=== PATIENT | female | born 1970 | race Caucasian/White ===

== ENCOUNTER 2021-05-10 06:25 | Day surgery (SDC) | payer BC, OTHER ==
[~2021-05-10] VITALS: Ht 160 cm; Wt 91.0 kg
[~2021-05-10 06:25] MED LIST: ESTRING1 EACH VAGINAL; MULTI VITAMIN1 EACH PO
--- NOTE | 2021-05-10 08:12 | NUR ---
05/10/21 0812 Angie Gipson [id number]-PATIENT ARRIVED TO PACU ON 2L NC RR EVEN LAYING LEFT LATERAL. PATIENT VERY DROWSY DENIES PAIN OR NAUSEA. ENCOURAGED TO PASS GAS. PATIENT FALLS BACK ASLEEP.
--- NOTE | 2021-05-10 09:20 | OR ---
[facility] [address], [place] [address] Signed DATE OF OPERATION: 05/10/2021 SURGEON: Hyun Calles MD PREOPERATIVE DIAGNOSIS: Screening. POSTOPERATIVE DIAGNOSES: 1. Minimal to moderate sigmoid diverticulosis. 2. Long redundant moderately angulated left colon. PROCEDURE: Colonoscopy without biopsy. ESTIMATED BLOOD LOSS: None. INDICATIONS: Sean is a 50-year-old female, asked to see me for her initial screening colonoscopy. She has no lower GI complaints. There is no family history of colon cancer or polyps. In the office, I gave her a pamphlet on colonoscopy. She understands the nature of the test. There is risk including, but not limited to gas bloating, crampy abdominal pain, bleeding, perforation requiring surgery, and missed diagnosis. She also understands the need for IV conscious sedation. She expressed understanding and wishes to proceed. PROCEDURE NOTE: Sean was taken into our endoscopy suite and placed in the left lateral decubitus position. She was given a total of 7 mg of Versed and 150 mcg of fentanyl to cover the case. A digital rectal exam was performed and this was unremarkable. The adult colonoscope was introduced and advanced under direct visualization of the camera. We found that she has at least a couple of areas of angulation in the sigmoid colon. In that regard, she took extra sedation, abdominal compression in order to advance the scope. Her splenic and hepatic flexures took just a little bit to get around as well. Overall, she seemed to be well sedated, but if she has recall of the procedure, she might consider monitored anesthesia care with propofol in the future. Eventually, we made it down to the right cecum. Her prep was quite excellent. We could easily see the appendiceal orifice and the ileocecal valve. The scope was slowly withdrawn. She has no polyps in the colon. She does have diverticula in the sigmoid colon. They were minimal to moderate in size and minimal to moderate in number. The rectum was unremarkable. Upon retroflexion of scope, she has a tiny internal anal skin tag. After Electronically Signed By: HYUN CALLES MD 05/10/21 0920 PATIENT NAME: SEAN GALAN OPERATIVE REPORT DATE OF : 68 REPORT #: [id number] PHYSICIAN: HYUN CALLES MD PCP: CHEYENNE CHRISTOPHER MD REPORT IS CONFIDENTIAL AND NOT TO BE RELEASED WITHOUT AUTHORIZATION [facility] [address] [place] [id number] Signed this, the gas was suctioned out and colonoscope removed. Sean tolerated the procedure quite well. RECOMMENDATIONS: Sean can return in 10 years for a repeat colonoscopy. If she has recall of the procedure, she might consider monitored anesthesia care with propofol in the future as described above. MD MARLON Griffin/JACKL /[id number] cc: MD Cheyenne Griffin MD Copies: HYUN CALLES MD, JONATHAN MD ~ Electronically Signed By: HYUN CALLES MD 05/10/21 0920 PATIENT NAME: SEAN GALAN OPERATIVE REPORT DATE OF : 68 REPORT #: [id number] PHYSICIAN: HYUN CALLES MD PCP: CHEYENNE CHRSITOPHER MD REPORT IS CONFIDENTIAL AND NOT TO BE RELEASED WITHOUT AUTHORIZATION
== END 2021-05-10 08:50 | disposition home or self-care (01) ==
LOC: OPS 06:25 → DS 06:25 → OPS 06:30 → DS 06:45 → OPS 08:50
PROVIDERS: ATTEND Colon & Rectal Surgery
PROC: 0DJD8ZZ Inspection of Lower Intestinal Tract, Via Natural or Artificial Opening Endoscopic (ICD-10-PCS; principal; 2021-05-10 06:30)
DX: Z12.11 Encounter for screening for malignant neoplasm of colon (principal); K57.30 Diverticulosis of large intestine without perforation or abscess without bleeding; Q43.8 Other specified congenital malformations of intestine; G47.33 Obstructive sleep apnea (adult) (pediatric); E66.9 Obesity, unspecified; Z68.35 Body mass index [BMI] 35.0-35.9, adult; Z90.11 Acquired absence of right breast and nipple; Z87.891 Personal history of nicotine dependence
CPT/HCPCS: 99153; G0500; J2250; J3010; J7121

== ENCOUNTER 2023-07-20 12:38 | Emergency (ER) | payer OTHER, BC ==
[~2023-07-20] VITALS: Ht 157.5 cm; Wt 96.2 kg
[2023-07-20] MEDS ORDERED: HYDROCODON-ACE1 EA10 PO (14:11)
[2023-07-20 14:33] VITALS: BP 147/80
== END 2023-07-20 14:34 | disposition home or self-care (01) ==
LOC: ED 12:38
DX: M23.91 Unspecified internal derangement of right knee (principal); V86.55XA Driver of 3- or 4- wheeled all-terrain vehicle (ATV) injured in nontraffic accident, initial encounter; Z87.891 Personal history of nicotine dependence; Z88.2 Allergy status to sulfonamides; Z79.899 Other long term (current) drug therapy
CPT/HCPCS: 73560; A9270